=== PATIENT | female | born 1950 | race Caucasian/White ===

== ENCOUNTER 2019-01-10 14:12 | Outpatient (CLI) | payer MEDICARE, BC ==
[2019-01-10 17:24] LABS: Hemoglobin 13.7 g/dL (12.0-16.0); Mean Corpuscular HGB CONC 33.8 g/dL (32.0-36.0); Mean Corpuscular Hemoglobin 31.2 pg (27.0-31.0); Mean Corpuscular Volume 92.5 fL (78.0-98.0); Mean Platelet Volume 9.7 fL (7.4-10.4); Platelet Count 207 thou/uL (130-400); RBC Distribution Width 12.1 % (11.5-14.5); Red Blood Cell (RBC) Count 4.39 mill/uL (4.20-5.40); White Blood Cell (WBC) Count 5.3 thou/uL (4.8-10.8)
[2019-01-10 17:30] LABS: INR-International Normal Ratio 0.9; PTT 28.3 SEC (22.9-36.1); Prothrombin Time 12.7 SEC (12.0-14.7)
[2019-01-10 17:36] LABS: Anion Gap 11 mmol/L (10-20); BUN (Urea Nitrogen) 14 mg/dL (9.8-20.1); Calc. Creatinine Clearance 0 mL/min (70-130); Calcium 10.3 mg/dL (7.8-10.44); Carbon Dioxide 28 mmol/L (23-31); Chloride 102 mmol/L (98-107); Estimated GFR-MDRD 71; Glucose 92 mg/dL (80-115); Potassium 4.4 mmol/L (3.5-5.1); Sodium 137 mmol/L (136-145)
--- NOTE | 2019-01-13 13:35 | EKG ---
Test Reason : Blood Pressure : / mmHG Vent. Rate : 081 BPM Atrial Rate : 081 BPM P-R Int : 166 ms QRS Dur : 104 ms QT Int : 398 ms P-R-T Axes : 061 -35 054 degrees QTc Int : 462 ms Normal sinus rhythm Left axis deviation Minimal voltage criteria for LVH, may be normal variant Abnormal ECG When compared with ECG of 25-SEP-2000 10:47, Nonspecific T wave abnormality no longer evident in Inferior leads QT has lengthened Confirmed by YASH JACKMAN, SFabián ([id number]) on 01/13/2019 1:34:54 PM Referred By: [facility] Confirmed By:DR. Vince BERRIOS MD
== END 2019-01-10 14:13 | disposition home or self-care (01) ==
LOC: LABBT 14:12
PROVIDERS: ATTEND Internal Medicine Cardiovascular Disease
DX: Z01.818 Encounter for other preprocedural examination (principal); I47.1 Supraventricular tachycardia
CPT/HCPCS: 80048; 85027; 85610; 85730; 93005; 93010

== ENCOUNTER 2019-01-13 10:01 | Day surgery (SDC) | payer MEDICARE, BC ==
[2019-01-10 16:55] VITALS: BMI 34.1
[2019-01-13] MEDS ORDERED: Heparin 10,000 UNITS/1 ML VIAL ONE (10:05)
[2019-01-13] MEDS ORDERED: Fentanyl 100 MCG/2 ML VIAL ONE (11:27)
[2019-01-13] MEDS ORDERED: Propofol 500 MG/50 ML VIAL ONE ×2 (11:28→12:59)
[2019-01-13] MEDS ORDERED: Midazolam HCl 2 mg/2 ml Vial ONE (11:43)
[2019-01-13] MEDS ORDERED: Famotidine/PF 20 mg/2ml Vial ONE (11:43)
[2019-01-13] MEDS ORDERED: Isoproterenol 0.2 MG/1 ML AMP ONE (13:20)
[2019-01-13] MEDS ORDERED: PHENYLEPHRINE-NS 100 MCG/ML 10 ML SYRINGE ONE (13:34)
[2019-01-13] MEDS ORDERED: PROPOFOL 200 MG/20 ML VIAL ONE (15:22)
--- NOTE | 2019-01-13 20:11 | OP ---
DATE OF PROCEDURE: 01/13/2019 PROCEDURE PERFORMED: Electrophysiology study and radiofrequency ablation. REASON FOR PROCEDURE: Ms. Hurtado is a 68-year-old woman with history of recurrent tachyarrhythmias with event monitor demonstrating narrow complex SVT at 167 beats per minute corresponding to her symptoms. She has normal structure, normal heart, here for EP study and ablation. DESCRIPTION OF PROCEDURE: The patient received propofol by Anesthesia specialist. After adequate level of sedation achieved, the left and right femoral venous area was prepped, draped, and anesthetized using subcutaneous lidocaine and under ultrasound guidance, the left femoral and right femoral veins were both cannulated. A total of three sheaths were introduced on the left side. A decapolar and octapolar catheter were advanced to the right atrium, right ventricle, His bundle, and CS position. Pacing, mapping, and recording were performed in each location. The following findings were noted. Baseline rhythm is sinus rhythm with cycle lengths of 809 milliseconds. The AH at this point was 89 milliseconds. The HV was 52 milliseconds. The QRS duration was 99 milliseconds. QT interval was 410 milliseconds. The AV Wenckebach cycle length was 360 milliseconds. The retrograde Wenckebach cycle length was 400 milliseconds. Concentric retrograde VA conduction was seen. The atrial access to my testing revealed AV carter ERP at 600/280 milliseconds. Around this cycle length, atrial extrastimuli testing initiated narrow complex tachycardia with cycle length about 480 milliseconds. Ventricular overdrive pacing entering the tachycardia and produce VA-AV response, eventually it terminated also the arrhythmia. 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 At this point, a standard 4 mm ablation catheter was advanced to the right atrium. 3D map of the right atrium was obtained, delineating the His bundle, coronary sinus location as the slow pathway area was figured out. Radiofrequency ablation at the slow pathway area delivered a total of 3 lesions at total duration of 1 minute and 58 milliseconds at 40 ny, 50 degree cut off. We were able to modify the slow pathway and junctional escape beats were noted throughout the cautery. No AV block was observed. Following that, burst atrial pacing did not reinduce arrhythmia. Isuprel was initiated at this time. During Isuprel pace and station burst atrial pacing was performed at tight cycle length of 220 milliseconds, we were able to induce atrial flutter/fibrillation, which were persisting. Eventually, this was shock terminated. The burst atrial pacing maneuver was repeated on Isuprel. We were not able to reinduce the AV carter reentry tachycardia. The cardiac silhouette was rechecked at the end of the case. No changes were noted. The patient remained stable. Sheaths were pulled in the computer lab para professional. CONCLUSION: 1. 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 2. Slow pathway modification eliminating inducibility of AV carter reentrant tachycardia and change the slow pathway pattern as well. 3. Central retrograde VA conduction. No evidence of accessory pathway seen. 4. Rapid burst atrial pacing was able to induce additional atrial arrhythmias, atrial fibrillation, and atypical atrial flutter as such typical atrial flutter appearing sequences were noted, which were eventually shock terminated. 5. Normal AV carter function is seen. PLAN: Continue to monitor for recurrent atrial arrhythmias. Job ID: [id number]
--- NOTE | 2019-01-14 22:29 | EKG ---
Test Reason : POST ABLATION Blood Pressure : / mmHG Vent. Rate : 065 BPM Atrial Rate : 065 BPM P-R Int : 190 ms QRS Dur : 096 ms QT Int : 426 ms P-R-T Axes : 077 -23 033 degrees QTc Int : 443 ms Normal sinus rhythm Normal ECG No previous ECGs available Confirmed by Wenceslao SMITH ([id number]) on 01/14/2019 10:28:50 PM Referred By: [facility] Confirmed By:Wenceslao SMITH
== END 2019-01-13 17:09 | disposition home or self-care (01) ==
LOC: CCL 10:01
PROVIDERS: ATTEND Internal Medicine Cardiovascular Disease
PROC: 02583ZZ Destruction of Conduction Mechanism, Percutaneous Approach (ICD-10-PCS; principal; 2019-01-13)
PROC: 02K83ZZ Map Conduction Mechanism, Percutaneous Approach (ICD-10-PCS; 2019-01-13)
PROC: 4A023FZ Measurement of Cardiac Rhythm, Percutaneous Approach (ICD-10-PCS; 2019-01-13)
PROC: 4A0234Z Measurement of Cardiac Electrical Activity, Percutaneous Approach (ICD-10-PCS; 2019-01-13)
DX: I47.1 Supraventricular tachycardia (principal); Z85.3 Personal history of malignant neoplasm of breast; Z90.49 Acquired absence of other specified parts of digestive tract; Z88.5 Allergy status to narcotic agent; Z79.899 Other long term (current) drug therapy
CPT/HCPCS: 76942; 92960; 93005; 93613; 93621; 93623; 93653; C1730; C1769; J0131; J1644; J2250; J2704; J3010; S0028

== ENCOUNTER 2022-11-06 14:52 | Outpatient (CLI) | payer MEDICARE, BC ==
[2022-11-06 15:53] LABS: #Eosinphils 0.1 10x3/uL (0.0-0.5); #Monocytes 0.4 10x3/uL (0.0-1.1); #Neutrophils 3.4 10x3/uL (1.5-8.4); %Basophils 0.4 % (0.0-2.0); %Monocytes 8.3 % (0.0-10.0); %Neutrophils 66.3 % (40.0-75.0); Hemoglobin 13.8 g/dL (12.0-15.5); Mean Corpuscular HGB CONC 33.6 g/dL (32.0-36.0); Mean Corpuscular Hemoglobin 30.9 pg (27.0-33.0); Mean Corpuscular Volume 92.2 fl (81.6-98.3); Mean Platelet Volume 12.3 fl (7.4-10.4); Platelet Count 176 10x3/uL (150-450); RBC Distribution Width 12.9 % (11.5-14.5); Red Blood Cell (RBC) Count 4.46 10x6/uL (3.90-5.03); White Blood Cell (WBC) Count 5.1 10x3/uL (3.5-10.5)
[2022-11-06 16:27] LABS: Anion Gap 17 mmol/L (10-20); BUN (Urea Nitrogen) 17 mg/dL (9.8-20.1); Calc. Creatinine Clearance 0 mL/min (70-130); Calcium 9.7 mg/dL (7.8-10.44); Carbon Dioxide 20 mmol/L (23-31); Chloride 106 mmol/L (98-107); Estimated GFR 75; Glucose 90 mg/dL (80-115); Potassium 4.8 mmol/L (3.5-5.1); Sodium 138 mmol/L (136-145)
== END 2022-11-06 14:53 | disposition home or self-care (01) ==
LOC: LABBT 14:52
PROVIDERS: ATTEND Specialist
DX: Z01.818 Encounter for other preprocedural examination (principal); C50.911 Malignant neoplasm of unspecified site of right female breast
CPT/HCPCS: 80048; 85025; 93005; 93010

== ENCOUNTER 2022-11-10 06:31 | Day surgery (SDC) | payer MEDICARE, BC ==
[2022-11-08 10:46] VITALS: BMI 36.2
[2022-11-10] MEDS ORDERED: Acetaminophen 500 MG TAB ONE (09:59)
[2022-11-10] MEDS ORDERED: Ketorolac Tromethamine 30 MG/ML VIAL ONE (09:59)
[2022-11-10] MEDS ORDERED: CEFAZOLIN 2 GM VIAL ONE (10:00)
[2022-11-10] MEDS ORDERED: Lidocaine 1% MPF 2 ML VIAL ONE (10:00)
[2022-11-10] MEDS ORDERED: Sodium Chloride 0.9% 100 ML ONE (10:01)
[2022-11-10] MEDS ORDERED: Midazolam HCl 2 mg/2 ml Vial ONE (10:20)
[2022-11-10] MEDS ORDERED: fentaNYL PF 100 MCG/2 ML SYRINGE ONE ×2 (11:55→14:09)
[2022-11-10] MEDS ORDERED: Bupivacaine/Epinephrine 0.25% 30 ML VIAL ONE ×2 (12:18→13:13)
[2022-11-10] MEDS ORDERED: Isosulfan Blue 50 MG/5 ML VIAL ONE (12:18)
[2022-11-10] MEDS ORDERED: Ondansetron PF 4 MG/2 ML Vial ONE (12:36)
[2022-11-10] MEDS ORDERED: ePHEDrine 50 MG/ML VIAL ONE (12:36)
[2022-11-10] MEDS ORDERED: Dexamethasone 20 MG/5 ML VIAL ONE (12:36)
[2022-11-10] MEDS ORDERED: Lidocaine 1% PF 5 ML VIAL ONE (12:36)
[2022-11-10] MEDS ORDERED: PROPOFOL 200 MG/20 ML VIAL ONE (12:36)
[2022-11-10] MEDS ORDERED: Glycopyrrolate 0.2 MG/ML 5 ML SYRINGE ONE (12:36)
[2022-11-10] MEDS ORDERED: Dexmedetomidine 200 MCG/2 ML VIAL ONE (14:10)
== END 2022-11-10 15:38 | disposition home or self-care (01) ==
LOC: SDC 06:31
PROVIDERS: ATTEND Specialist
PROC: 0HBT0ZZ Excision of Right Breast, Open Approach (ICD-10-PCS; principal; 2022-11-10)
PROC: 07B50ZX Excision of Right Axillary Lymphatic, Open Approach, Diagnostic (ICD-10-PCS; 2022-11-10)
DX: C50.411 Malignant neoplasm of upper-outer quadrant of right female breast (principal); C77.3 Secondary and unspecified malignant neoplasm of axilla and upper limb lymph nodes; Z17.0 Estrogen receptor positive status [ER+]; Z79.890 Hormone replacement therapy; Z79.899 Other long term (current) drug therapy; Z88.5 Allergy status to narcotic agent; Z91.048 Other nonmedicinal substance allergy status
CPT/HCPCS: 19281; 19301; 38525; 38900; 76098; 78195; A9541; C1713; Q9968; 88307; 88342; J1100; J1885; J2250; J2405; J2704; J3490

== ENCOUNTER 2024-08-15 17:41 | Day surgery (SDC) | payer MEDICARE, BC ==
[2024-08-15] MEDS ORDERED: EPINEPHrine 0.3 MG in Ophthalmic Irrigation Solution 500 ML IRR SCH (18:00)
[2024-08-15] MEDS ORDERED: Cyclopentolate 1% Opth Drop 2 ML BOT FS SCH (18:15)
[2024-08-15] MEDS ORDERED: CYCLOPENTOLATE 1% OP SCH (18:15)
[2024-08-15] MEDS ORDERED: PROPOFOL 20 ML ONE ×2 (18:28→19:13)
[2024-08-15] MEDS ORDERED: Midazolam HCl 2 mg/2 ml Vial ONE (18:28)
[2024-08-15] MEDS ORDERED: fentaNYL 50 mcg/mL 1 mL Vial ONE (18:28)
[2024-08-15] MEDS ORDERED: CEFAZOLIN 1 GM VIAL ONE (19:16)
[2024-08-15] MEDS ORDERED: Lidocaine 4% PF 5 ML AMP ONE (19:16)
[2024-08-15] MEDS ORDERED: Triamcinolone 40 MG/ML VIAL ONE (19:16)
[2024-08-15] MEDS ORDERED: Bupivacaine 0.75% 10 ML VIAL ONE (19:16)
[2024-08-15] MEDS ORDERED: Maxitrol 0.1% Opth Oint 3.5 GM TUBE ONE (19:16)
[2024-08-15] MEDS ORDERED: Lidocaine 1% PF 5 ML VIAL ONE (19:16)
== END 2024-08-15 20:55 | disposition home or self-care (01) ==
LOC: SDC/OP 17:41
PROVIDERS: ATTEND Ophthalmology Retina Specialist
PROC: 08T43ZZ Resection of Right Vitreous, Percutaneous Approach (ICD-10-PCS; principal; 2024-08-15)
DX: H33.021 Retinal detachment with multiple breaks, right eye (principal)
CPT/HCPCS: 67025; 67108; J0171; J0690; J2250; J2704; J3010; J3301; J3490